=== PATIENT | male | born 1980 | race Caucasian/White ===

== ENCOUNTER 2018-10-24 22:32 | Emergency (ER) | payer SELFPAY ==
--- NOTE | 2018-10-24 22:52 | ER ---
Nurse's Notes [facility] Name: Jamie Leong Age: 37 yrs Sex: Male : 1980 Arrival Date: 10/24/2018 Time: 22:33 Bed 5 Private MD: Diagnosis: Presentation: 10/24 22:34 Presenting complaint: Patient states: Banged head on bars in police car, two tl2 lacerations sustained to head, bleeding controlled. Transition of care: patient was not received from another setting of care. Complicating Factors: There are no complicating factors for this patient. Onset of symptoms was October 24, 2018 at 21:45. Risk Assessment: Do you want to hurt yourself or someone else? Patient reports no desire to harm self or others. Initial Sepsis Screen: Does the patient meet any 2 criteria? No. Patient's initial sepsis screen is negative. Does the patient have a suspected source of infection? No. Patient's initial sepsis screen is negative. Care prior to arrival: None. 22:34 Method Of Arrival: EMS: [facility] tl2 22:34 Acuity: MIR 4 tl2 Triage Assessment: 22:48 General: Appears in no apparent distress. uncomfortable, Behavior is calm, cooperative, tl2 appropriate for age. Pain: Complains of pain in head, scalp. Neuro: Level of Consciousness is awake, alert, obeys commands, Oriented to person, place, time, situation. Cardiovascular: Denies chest pain. Respiratory: Airway is patent Respiratory effort is even, unlabored, Respiratory pattern is regular, symmetrical. GI: No signs and/or symptoms were reported involving the gastrointestinal system. Injury Description: Laceration sustained to scalp is clean, 0.5 to 2.5 cm long, bleeding moderately, was sustained 30-60 minutes ago. is bleeding a small amount. Historical: - Allergies: 22:48 No Known Allergies; tl2 - Home Meds: 22:48 None [Active]; tl2 - PMHx: 22:48 psych problem; tl2 - PSHx: 22:48 None; tl2 - Immunization history:: Adult Immunizations up to date. - Social history:: Smoking status: Patient/guardian denies using tobacco, Patient uses street drugs, marijuana, Methamphetamine (Meth). - Ebola Screening: : No symptoms or risks identified at this time. Screenin:50 Abuse screen: Denies threats or abuse. Nutritional screening: No deficits noted. tl2 Tuberculosis screening: No symptoms or risk factors identified. Fall Risk None identified. Assessment: 22:48 General: see triage assessment. tl2 22:51 Reassessment: returned to room with supplies for laceration repair and pt was not in tl2 room. Registration stated that patient walked out with girlfriend. Vital Signs: 22:48 BP 144 / 105; Pulse 63; Resp 18; Temp 97.6(O); Pulse Ox 100% on R/A; Weight 88.45 kg; tl2 Height 5 ft. 7 in. (170.18 cm); Pain 2/10; 22:48 Body Mass Index 30.54 (88.45 kg, 170.18 cm) tl2 ED Course: 22:33 Patient arrived in ED. tl2 22:35 Triage completed. tl2 22:48 Arm band placed on right wrist. tl2 22:50 Patient has correct armband on for positive identification. Bed in low position. Call tl2 light in reach. Adult w/ patient. Administered Medications: No medications were administered Outcome: 22:53 Patient left the ED. tl2 Signatures: Parvin Fung RN RN tl2
== END 2018-10-24 22:53 | disposition left against medical advice (07) ==
LOC: ER 22:32
DX: S01.01XA Laceration without foreign body of scalp, initial encounter (principal); Z53.21 Procedure and treatment not carried out due to patient leaving prior to being seen by health care provider
CPT/HCPCS: 99282